=== PATIENT | male | born 1950 | race Caucasian/White ===

== ENCOUNTER 2019-06-21 10:09 | Emergency (ER) | payer MEDICARE ==
[~2019-06-21] VITALS: Ht 177.8 cm; Wt 72.7 kg
[2019-06-21 10:20] VITALS: Ht 177.8 cm; Wt 72.7 kg
[2019-06-21] MEDS ORDERED: BAYER CHEWABLE81 MG PO (10:20)
[2019-06-21] MEDS ORDERED: TIROSINT88 MCG PO (10:21)
[2019-06-21] MEDS ORDERED: LISINOPRIL10 MG PO (10:21)
[2019-06-21] MEDS ORDERED: HYDROCHLOROTH12.5 M1 PO (10:21)
[2019-06-21] MEDS ORDERED: PRAVACHOL40 MG PO (10:21)
[2019-06-21] MEDS ORDERED: CYCLOBENZAPRINE10 MG PO (11:15)
[2019-06-21] MEDS ORDERED: PREDNISONE10 MG PO (11:15)
[2019-06-21] MEDS ORDERED: EC-NAPROSYN500 MG PO (11:15)
[2019-06-21 11:21] VITALS: BP 122/62
== END 2019-06-21 11:22 | disposition home or self-care (01) ==
LOC: D.ER 10:09
DX: S43.401A Unspecified sprain of right shoulder joint, initial encounter (principal); W19.XXXA Unspecified fall, initial encounter; Y93.9 Activity, unspecified; Y92.9 Unspecified place or not applicable; E07.9 Disorder of thyroid, unspecified; I10 Essential (primary) hypertension